=== PATIENT | female | born 1970 | race African-American/Black ===

== ENCOUNTER 2018-03-28 12:44 | Emergency (ER) | payer BC ==
--- NOTE | 2018-03-28 12:48 | PDOC ---
History of Present Illness - General Chief Complaint: Nausea/Vomiting Stated Complaint: NAUSEA/VOMITING Time Seen by Provider: 03/28/18 12:47 - History of Present Illness Initial Comments: 03/28/18 13:19 Chief complaint: Nausea vomiting History of present illness: After waking this morning, the patient began to feel nausea, vomit several times, and continue stretching. She had a soft bowel movement but no diarrhea. There was no hematemesis melena or bloody stool. Intermittent crampy lower abdominal pain is present. No pain now. Review of systems: No fever/chills, headache, sore throat, URI symptoms, cough, chest pain, shortness of breath, visual or focal neurologic symptoms, unsteadiness of gait. She admits lightheadedness and generalized weakness. No dysuria or other urinary symptoms, no vaginal bleeding or discharge. No suspicious ingestions other than salad yesterday, uncertain whether it was Andrea. Past medical history: Healthy female, no history of GI disease or surgery. Tubal ligation in the past. 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 , stable home and family. Denies tobacco alcohol or nonprescription drugs Family history: Reviewed and noncontributory Physical exam: Alert and oriented well-developed well-nourished no acute distress cooperative Afebrile, vital signs normal No pallor or icterus. PERRLA, conjunctivae ears nose and throat clear Neck supple without bruit mass or nodes Chest clear with full breath sounds throughout bilaterally CV regular without murmur rub or gallop pulses full and symmetric no JVD or edema no bruits no tachycardia Abdomen nondistended. Bowel sounds normal. Soft without mass or organomegaly. There is mild diffuse tenderness to deep palpation without guarding or rebound, no localization Extremities no CCE Skin clear, no rash, adequate turgor and wet mucous membranes Neurological intact Impression: Acute viral gastroenteritis Plan: Intravenous hydration, antiemetics, labwork and observation. Further treatment depending on results Past History - Past Medical History Allergies/Adverse Reactions: Allergies Allergy/AdvReac Type Severity Reaction Status Date / Time No Known Allergies Allergy Verified 03/28/18 12:45 Home Medications: Ambulatory Orders Ondansetron [Zofran Odt -] 4 mg SL TID PRN #12 od.tablet 03/28/18 ED Treatment Course - LABORATORY CBC & Chemistry Diagram: 03/28/18 13:05 03/28/18 13:05 Medical Decision Making - Medical Decision Making 03/28/18 14:20 White blood count 14,000. Remainder CBC normal Sodium and potassium mildly depressed. Glucose mildly elevated. Otherwise labs are without significant abnormalities Patient is resting comfortably. No further nausea or vomiting. No abdominal pain. Supplement potassium IV and by mouth. Further observation. 03/28/18 16:18 Increased fluids and potassium administered. Patient now asymptomatic. No further nausea or vomiting. No abdominal pain. Discharged in no distress with with instructions, to follow-up as directed. *DC/Admit/Observation/Transfer Diagnosis at time of Disposition: Viral gastroenteritis - Discharge Dispostion Disposition: HOME Condition at time of disposition: Improved Decision to Admit order: No - Prescriptions Prescriptions: Ondansetron [Zofran Odt -] 4 mg SL TID PRN #12 od.tablet PRN Reason: Nausea And/Or Vomiting - Referrals Referrals: Js Kaufman MD [Staff Physician] - 3 days - Patient Instructions Printed Discharge Instructions: DI for Nausea -- Adult, DI for Vomiting -- Adult - Post Discharge Activity Forms/Work/School Notes: Back to Work
[2018-03-28] MEDS ORDERED: SODIUM CHLORIDE 1,000 ML IV STA (12:49)
[2018-03-28] MEDS ORDERED: ONDANSETRON 4 MG/2 ML VIAL IVPB ONE (12:49)
[2018-03-28 13:03] VITALS: BP 165/93; PULSE 87; TEMP 97.5; BMI 24.9
[2018-03-28] MEDS ORDERED: ONDANSETRON 4 MG/2 ML VIAL ONE (13:12)
[2018-03-28 13:23] LABS: BASO % 0.1 % (0-2.0); EOS % 0.2 % (0-4.5); HEMATOCRIT 40.8 % (32.4-45.2); HEMOGLOBIN 13.5 GM/dl (10.7-15.3); LYMPH % 15.2 % (8-40); MCH 31.5 pg (25.7-33.7); MCHC 33.2 g/dl (32.0-36.0); MEAN CELL VOLUME 94.8 fl (80-96); MEAN PLT VOLUME 8.9 fl (7.5-11.1); MONO % 3.8 % (3.8-10.2); NEUT % 80.7 % (42.8-82.8); PLATELET COUNT 296 K/MM3 (134-434); RDW 11.8 % (11.6-15.6); WHITE BLOOD COUNT 14.8 K/mm3 (4.0-10.8)
[2018-03-28 13:33] LABS: ALBUMIN 4.1 g/dl (3.5-5.0); ALK PHOS 62 U/L (32-92); ANION GAP 8 MMOL/L (8-16); BILIRUBIN,TOTAL 0.7 mg/dl (0.2-1.0); BLOOD UREA NITROGEN 12 mg/dl (7-18); CALCIUM 9.3 mg/dl (8.4-10.2); CHLORIDE 103 mmol/L (98-107); CO2 22 mmol/L (22-28); GLUCOSE,RANDOM 182 mg/dl (74-106); POTASSIUM 3.3 mmol/L (3.5-5.1); SGOT/AST 28 U/L (10-42); SGPT/ALT 18 U/L (10-40); SODIUM 133 mmol/L (136-145); TOT PROT 7.7 g/dl (6.4-8.3)
[2018-03-28] MEDS ORDERED: POTASSIUM CHLORIDE ORAL LIQUID 20 MEQ/15 ML PO ONE (14:09)
[2018-03-28] MEDS ORDERED: POTASSIUM CHLORIDE 10 MEQ in SODIUM CHLORIDE 1,000 ML IVPB SCH (14:15)
[2018-03-28 14:20] LABS: LIPASE 146 U/L (73-393)
[2018-03-28] MEDS ORDERED: POTASSIUM CHLORIDE ORAL LIQUID 20 MEQ/15 ML ONE (14:30)
[2018-03-28 15:14] LABS: HCG,QUALITATIVE URINE Negative
[2018-03-28 15:17] LABS: URINE APPEARANCE Clear; URINE BILIRUBIN Negative (NEGATIVE); URINE COLOR Yellow; URINE GLUCOSE (UA) Negative (NEGATIVE); URINE KETONE Negative (NEGATIVE); URINE LEUK ESTERASE Negative (NEGATIVE); URINE NITRITE Negative (NEGATIVE); URINE PROTEIN Negative (NEGATIVE); URINE UROBILINOGEN 0.2 (0.2-1.0)
== END 2018-03-28 16:29 | disposition home or self-care (01) ==
LOC: FER 12:44
PROC: 3E033GC Introduction of Other Therapeutic Substance into Peripheral Vein, Percutaneous Approach (ICD-10-PCS; principal; 2018-03-28)
PROC: 3E0337Z Introduction of Electrolytic and Water Balance Substance into Peripheral Vein, Percutaneous Approach (ICD-10-PCS; 2018-03-28)
DX: A08.4 Viral intestinal infection, unspecified (principal)
CPT/HCPCS: 36415; 80053; 81003; 83690; 84703; 85025; 99284-25; J7030